=== PATIENT | male | born 1980 | race American Indian/Alaskan Native ===

== ENCOUNTER 2023-10-18 13:19 | Emergency (ER) | payer OTHER ==
[2023-10-18] MEDS ORDERED: Codeine/guaiFENesin 100mg-10 MG/5 ML Soln 118 ML Bottle PO ONE (13:20)
[2023-10-18 14:58] LABS: BASOPHILS PERCENT AUTO 0.6 % (0.3-3.8); EOSINOPHILS ABSOLUTE AUTO 0.1 x10-3/uL (0.0-0.6); EOSINOPHILS PERCENT AUTO 0.8 % (0.1-6.8); HEMATOCRIT 42.2 % (38.3-50.1); HEMOGLOBIN 14.3 g/dL (12.9-17.7); LYMPHOCYTES ABSOLUTE AUTO 1.8 x10-3/uL (0.5-4.5); LYMPHOCYTES PERCENT AUTO 20.6 % (15.8-45.3); MEAN CORPUSCULAR HEMOGLOBIN 30.5 pg (27.0-33.3); MEAN CORPUSCULAR HGB CONC 33.8 g/dL (28.7-35.3); MEAN CORPUSCULAR VOLUME 90.2 fL (80.8-98.7); MONOCYTES ABSOLUTE AUTO 0.4 x10-3/uL (0.0-1.2); MONOCYTES PERCENT AUTO 4.7 % (5.5-15.2); NEUTROPHILS ABSOLUTE AUTO 6.4 x10-3/uL (1.7-6.9); NEUTROPHILS PERCENT AUTO 73.3 % (40.3-71.8); PLATELET COUNT,PLT 238 x10(3)uL (117-477); RED BLOOD CELL COUNT 4.68 x10(6)uL (3.90-5.90); RED CELL DISTRIBUTION WIDTH 13.5 % (12.4-15.0); WHITE BLOOD CELL COUNT,WBC 8.8 x10-3/uL (3.2-10.1)
[2023-10-18 14:59] LABS: BLOOD UREA NITROGEN,BUN 12 mg/dL (7-18); CALCIUM 8.8 mg/dL (8.6-10.2); CARBON DIOXIDE,CO2 27 mmol/L (21-32); CHLORIDE,CL 103 mmol/L (100-110); CREATININE 0.8 mg/dL (0.70-1.30); EST CRCL DRUG DOSING (CG) 129.33 mL/min; ESTIMATED GFR 112 mL/min (>60); GLUCOSE RANDOM 189 mg/dL (80-116); POTASSIUM,K 4.1 mmol/L (3.5-5.3); SODIUM,NA 140 mmol/L (135-145)
[2023-10-18 15:01] LABS: C-REACTIVE PROTEIN 0.84 mg/dL (<0.50)
[2023-10-18 15:04] LABS: ETHANOL BLOOD MEDICAL < 0.03 % (<0.03)
[2023-10-18 15:08] LABS: A/G RATIO 0.7; ALANINE AMINOTRANSFERASE,ALT 90 U/L (12-36); ALBUMIN 3.6 g/dL (3.5-5.2); ALKALINE PHOSPHATASE 96 IU/L (56-112); ASPARTATE AMNIOTRANSFERASE,AST 40 IU/L (5-25); BILIRUBIN TOTAL 0.2 mg/dL (0.1-1.3); MAGNESIUM 1.8 mg/dL (1.8-2.5); PROTEIN TOTAL,TP 8.8 g/dL (6.0-8.0)
[2023-10-18] MEDS ORDERED: Sodium Chloride 0.9% 10 ML Syringe FLUSH PRN (15:22)
[2023-10-18] MEDS: Sodium Chloride 0.9% 500 ML IV ONE (15:46)
[2023-10-18] MEDS: Iopamidol 755 Mg/ML 100 ML Bottle IV SCH (15:49)
[2023-10-18] MEDS: Levofloxacin 750 MG Tab PO ONE (19:13)
== END 2023-10-18 19:30 | disposition home or self-care (01) ==
LOC: FB.ED 13:19 → EDBD 13:19 → FB.ED 19:30
DX: J18.9 Pneumonia, unspecified organism (principal); R04.2 Hemoptysis; J98.4 Other disorders of lung; I10 Essential (primary) hypertension; E11.9 Type 2 diabetes mellitus without complications; Z79.899 Other long term (current) drug therapy
CPT/HCPCS: 36415; 71046; 71275; 80053; 80307; 83735; 85025; 85379; 86140; 93005; 93010; 96360; 99284; 99285-25; A9270-GY; J7040; Q9967